=== PATIENT | male | born 1985 | race Caucasian/White ===

== ENCOUNTER → 2024-05-10 | Outpatient (CLI) | payer OTHER | LOC: M WUC 12:36 | PROVIDERS: ATTEND Physician Assistant | DX: J20.9 Acute bronchitis, unspecified (principal) ==

== ENCOUNTER → 2024-12-28 | Outpatient (CLI) | payer BC ==
[~2024-12-28] MED LIST: ISOVUE-370 76% 100ML VIAL As Ordered ONE
== END ==
LOC: M RAD 08:28
PROVIDERS: ATTEND Internal Medicine Hematology & Oncology
DX: C18.7 Malignant neoplasm of sigmoid colon (principal); R18.8 Other ascites
CPT/HCPCS: 71260; 74177; Q9967

== ENCOUNTER → 2025-05-24 | Outpatient (CLI) | payer BC ==
[~2025-05-24] MED LIST changes: +CVS1CAP2 PO; +FAMO20TA PO; -ISOVUE-370 76% 100ML VIAL As Ordered ONE; +MM S100C PO; +POLY1POW38 PO; +TUMS500C PO
== END ==
LOC: M WUC 11:25
PROVIDERS: ATTEND Student in an Organized Health Care Education/Training Program
DX: R10.84 Generalized abdominal pain (principal)

== ENCOUNTER 2025-05-29 19:08 | Observation (INO) | payer BC ==
[~2025-05-29] VITALS: Ht 180.3 cm; Wt 90.5 kg
[2025-05-29] MEDS: GASTROGRAFIN SOLUTION 30ML PO SCH (20:24)
[2025-05-29 20:27] LABS: BASO # 0.0 10^3/uL (0.0-0.2); BASO % 0.5 % (0.0-1.0); EOS # 0.2 10^3/uL (0.0-0.5); EOS % 2.5 % (0.0-3.0); LYMPH # 2.1 10^3/uL (1.5-5.0); LYMPH % 28.3 % (24.0-44.0); MONO # 0.3 10^3/uL (0.0-0.8); MONO % 4.5 % (2.0-8.0); NEUTROPHILS # 4.8 10^3/uL (1.5-8.5); NEUTROPHILS % 64.1 % (36.0-66.0); PLATELET COUNT, AUTOMATED 278 10^3/uL (150-450)
[2025-05-29 20:41] LABS: INR 0.89
[2025-05-29 21:06] LABS: ALT/SGPT 16 U/L (7.0-40); AST/SGOT 19 U/L (<34); CALCIUM LEVEL 9.1 MG/DL (8.5-10.1); CARBON DIOXIDE LEVEL 30 MMOL/L (20-31); CHLORIDE LEVEL 102 MMOL/L (98-107); CREATININE FOR GFR 0.89 MG/DL (0.70-1.30); GLOMERULAR FILTRATION RATE > 90.0 (>60); POTASSIUM SERUM 4.1 MMOL/L (3.5-5.1); SODIUM LEVEL 143 MMOL/L (136-145)
[2025-05-29] MEDS ORDERED: ISOVUE-370 76% 100 ML VIAL As Ordered ONE (21:26)
[2025-05-29] MEDS ORDERED: TUMS500C PO (22:08)
[2025-05-29] MEDS ORDERED: FAMO20TA PO (22:08)
[2025-05-29] MEDS ORDERED: MM S100C PO (22:08)
[2025-05-29] MEDS ORDERED: CVS1CAP2 PO (22:08)
[2025-05-29] MEDS ORDERED: POLY1POW38 PO (22:08)
[2025-05-29] MEDS ORDERED: HOME MED LIST COMPLETE! XX SCH (22:10)
[2025-05-30] VITALS: TEMP 97.8
[2025-05-30] MEDS ORDERED: MAALOX 30 ML SUSP *UDC PO PRN (00:55)
[2025-05-30] MEDS ORDERED: BISACODYL 10 MG SUPP PR PRN (00:55)
[2025-05-30] MEDS ORDERED: MOM 30 ML SUSPENSION UDC PO PRN (00:55)
[2025-05-30 01:00] VITALS: BP 107/60; O2SAT 100
[2025-05-30] MEDS ORDERED: ACETAMINOPHEN *IV* 1,000 MG in IV 1 EA IV ONE (02:00)
[2025-05-30] MEDS ORDERED: ACETAMINOPHEN 500 MG TAB PO PRN (08:00)
[2025-05-30] MEDS ORDERED: ACETAMINOPHEN 325 MG TAB PO PRN (08:00)
[2025-05-30] MEDS ORDERED: DOCUSATE SODIUM 100 MG CAPSULE PO SCH (09:00)
== END 2025-05-30 02:26 | disposition left against medical advice (07) ==
LOC: M ED 19:08 → M ED INP 19:09 → UNDOADMIN 23:52 → M ED INP 23:52
PROVIDERS: ADMIT Family Medicine; ATTEND Family Medicine
DX: R18.8 Other ascites (principal); Z85.038 Personal history of other malignant neoplasm of large intestine; Z90.49 Acquired absence of other specified parts of digestive tract; Z92.21 Personal history of antineoplastic chemotherapy; R10.30 Lower abdominal pain, unspecified; K59.00 Constipation, unspecified; K92.1 Melena; R14.0 Abdominal distension (gaseous); R93.5 Abnormal findings on diagnostic imaging of other abdominal regions, including retroperitoneum; J45.909 Unspecified asthma, uncomplicated; K21.9 Gastro-esophageal reflux disease without esophagitis; F41.9 Anxiety disorder, unspecified; Z87.891 Personal history of nicotine dependence; Z79.899 Other long term (current) drug therapy
CPT/HCPCS: 74177; 80048; 80076; 83690; 85025; 85610; 85730; 93041; 99284; Q9963; Q9967

== ENCOUNTER → 2025-06-01 | Outpatient (CLI) | payer BC ==
[2025-06-01 10:20] VITALS: TEMP 98.2
[2025-06-01 11:57] VITALS: BP 102/57; O2SAT 100
== END ==
LOC: M IRPRO 09:55
PROVIDERS: ATTEND Physician Assistant
DX: C18.9 Malignant neoplasm of colon, unspecified (principal); C77.2 Secondary and unspecified malignant neoplasm of intra-abdominal lymph nodes

== ENCOUNTER → 2025-06-21 | Outpatient (CLI) | payer BC ==
[2025-06-21 11:20] VITALS: TEMP 97.9
[2025-06-21 11:50] VITALS: BP 108/64; O2SAT 99
== END ==
LOC: M IRPRO 11:01
PROVIDERS: ATTEND Internal Medicine Hematology & Oncology
DX: C18.9 Malignant neoplasm of colon, unspecified (principal); C77.2 Secondary and unspecified malignant neoplasm of intra-abdominal lymph nodes; R18.0 Malignant ascites